=== PATIENT | female | born 1970 | race Two or more races ===

== ENCOUNTER 2024-12-27 18:29 | Emergency (ER) | payer OTHER ==
[~2024-12-27] VITALS: Ht 160 cm; Wt 85.3 kg
[2024-12-27] MEDS ORDERED: LYRICA100 MG (18:40)
[2024-12-27] MEDS ORDERED: ORPHENADRINE CITRATE 30 MG/ML AMPUL IM STA (20:20)
[2024-12-27] MEDS ORDERED: KETOROLAC TROMETHAMINE 30 MG VIAL IM STA (20:21)
[2024-12-27] MEDS ORDERED: DEXAMETHASONE SODIUM PHOSPHATE 4 MG/ML VIAL IM STA (20:21)
[2024-12-27] MEDS ORDERED: ORPHENADRINE CITRATE 30 MG/ML AMPUL ONE (21:07)
[2024-12-27] MEDS ORDERED: KETOROLAC TROMETHAMINE 30 MG VIAL ONE (21:07)
[2024-12-27] MEDS ORDERED: DEXAMETHASONE SODIUM PHOSPHATE 4 MG/ML VIAL ONE (21:07)
== END 2024-12-27 22:15 | disposition home or self-care (01) ==
LOC: ER 18:29
DX: M54.2 Cervicalgia (principal); Z91.040 Latex allergy status